=== PATIENT | female | born 1950 | race Caucasian/White ===

== ENCOUNTER 2016-10-09 17:00 | Inpatient (IN) | payer OTHER ==
[~2016-10-09] VITALS: Ht 162.6 cm; Wt 78.4 kg
[2016-10-09] MEDS: BuPROPion SR 100 MG TABCR PO SCH
[~2016-10-09 17:00] MED LIST: BUPR100T8 PO; CLOB-65 TOP; ESCI10TA17 PO; MRP1 PO; PRAM1TAB PO
[2016-10-09] MEDS ORDERED: LEVO25TA PO (17:26)
[2016-10-09] MEDS ORDERED: CARB25TA12 PO (17:26)
[2016-10-09] MEDS ORDERED: ANTICRE6 PO (17:27)
[2016-10-09 18:27] LABS: BASO % 0.2 %; BASO ABS # 0.02 K/uL (0-0.2); COMPLETE YES; EOS % 1.7 %; IG% 0.1 %; LYMPH % 42.1 %; LYMPH ABS # 3.38 K/uL (1.2-3.4); MEAN CELL VOLUME 94.3 fL (80-100); MEAN CORPUSCULAR HGB CONC 33.9 g/dl (32-36); MONO % 6.2 %; NEUT % 49.7 %; PLATELET COUNT 391 K/uL (130-400); RED BLOOD COUNT 4.35 M/uL (4.2-5.4); WHITE BLOOD COUNT 8.02 K/uL (4.8-10.8)
[2016-10-09 18:29] LABS: URINE APPEARANCE CLEAR (CLEAR); URINE BILIRUBIN NEG (NEG); URINE COLOR YELLOW; URINE NITRITE NEG (NEG); URINE SPECIFIC GRAVITY 1.006 (1.000-1.030); UROBILINOGEN NEG (NEG)
[2016-10-09 18:32] LABS: MANUAL MICROSCOPIC REQUIRED? NO; REVIEW REQ? NO
[2016-10-09 18:40] LABS: INR 0.9 (0.9-1.1)
[2016-10-09 18:48] LABS: ALT/SGPT 12 U/L (12-78); AST/SGOT 15 U/L (15-37); BLOOD UREA NITROGEN 19 mg/dl (7-18); BUN/CREATININE RATIO 18.8 (10-20); CARBON DIOXIDE 29 mmol/L (21-32); CHLORIDE 106 mmol/L (98-107); CREATININE 0.99 mg/dl (0.60-1.20); GLUCOSE 85 mg/dl (70-99); POTASSIUM 3.9 mmol/L (3.5-5.1); SODIUM 142 mmol/L (136-145)
[2016-10-09 18:53] LABS: ALB/GLOB RATIO 0.9 (0.9-2); ALKALINE PHOSPHATASE 103 U/L (45-117); CKMB/CK RATIO 2.4 (0-3.0)
--- NOTE | 2016-10-09 19:34 | DIAGNOSTIC IMAGING REPORT ---
BILATERAL LOWER EXTREMITY VENOUS DOPPLER CLINICAL HISTORY: Multiple pulmonary emboli. COMPARISON STUDY: Left lower extremity venous Doppler July 14, 2008. TECHNIQUE: Sonography of the deep venous system of the bilateral lower extremities was performed. Compression and augmentation were evaluated. FINDINGS: The bilateral common femoral, superficial femoral and popliteal veins were compressible. Augmentation was normal. Flow was shown within the deep calf vessels. IMPRESSION: No evidence of deep venous thrombus within the bilateral lower extremities. Electronically signed by: Horace Alexandra M.D. 10/09/2016 7:33 PM Dictated Date/Time: 10/09/2016 7:32 PM
--- NOTE | 2016-10-09 19:45 | EMERGENCY ROOM VISIT NOTE ---
History Report prepared by Gabi: Khalif Cedeño Under the Supervision of: Dr. Benigno Adams M.D. First contact with patient: 17:44 Chief Complaint: SHORTNESS OF BREATH Stated Complaint: DOCTOR TOLD TO COME IN, BLOOD CLOTS IN LUNGS Nursing Triage Summary: pt reports she had ct scan today called by pcp told she has pe in bilat lungs and needed to come to ed History of Present Illness The patient is a 66 year old female who presents to the Emergency Room with complaints of constant shortness of breath beginning six months ago. She states that she had a CT today which revealed right lower lobe and bilateral segmental branches pulmonary emboli. The CT was ordered by her PCP, who the patient saw for rib pain and shortness of breath. The patient states that she has had her rib pain since she fell two weeks ago. She has no history of blood clots. She states that she drove 3 hours a few weeks ago, but denies any other recent travel. Nothing has improved her symptoms. The patient is asplenic. She has a history of a nephrectomy and has had the tail of her pancreas removed due to cancer. Source of History: patient Onset: Six months ago Quality: other (shortness of breath) Timing: constant Modifying Factors (Relieving): other (none) Note: The patient also complains of rib pain. Review of Systems See HPI for pertinent positives & negatives. A total of 10 systems reviewed and were otherwise negative. Past Medical & Surgical Medical Problems: (1) left adrenal gland removal (2) Multinodular goiter (3) nephrectomy left (4) partial pancreatectomy (5) s/p ACL repair (6) s/p colonoscopy (7) s/p pubovaginal sling (8) s/p resection retroperitoneal mass (9) Splenectomy Family History Stroke Social History Smoking Status: Never Smoker Marital Status: Housing Status: lives with significant other Occupation Status: retired Current/Historical Medications Scheduled Bupropion (Wellbutrin Sr), 100 MG PO BID Carbidopa/Levodopa (Sinemet 25MG/100MG), 1 TAB PO TID Escitalopram (Lexapro), 10 MG PO HS Levothyroxine Sodium (Synthroid), 25 MCG PO DAILY Pramipexole Dihydrochloride (Mirapex), 1 TAB PO TID [Antibiotic], 1 TAB PO BID Allergies Coded Allergies: No Known Allergies (Verified , NONE, 10/09/16) Physical Exam Vital Signs Date Time Temp Pulse Resp B/P Pulse Ox O2 Delivery O2 Flow Rate FiO2 10/09/16 19:50 62 10/09/16 19:41 62 18 161/93 97 Room Air 10/09/16 17:08 36.6 62 18 138/91 96 Room Air Physical Exam GENERAL: Patient is a healthy-appearing well-nourished HEAD: Normocephalic atraumatic EYES: Ocular movements intact pupils equal and react to light OROPHARYNX mucous membranes are moist no exudates present no erythema or edema present NECK: Supple no nuchal rigidity CHEST: Good equal expansion LUNGS: Clear and equal to auscultation CARDIAC: Normal S1 and S2 ABDOMEN: Soft nontender no guarding BACK: No CVA tenderness EXTREMITIES: No pain upon palpation normal muscle strength in all groups no clubbing cyanosis or edema NEURO: Patient is following commands is answering questions appropriately. Alert and oriented x3 Cranial Nerves 2-12 grossly intact Medical Decision & Procedures ER Provider Diagnostic Interpretation: US results as stated below per my review and radiologist interpretation: BILATERAL LOWER EXTREMITY VENOUS DOPPLER FINDINGS: The bilateral common femoral, superficial femoral and popliteal veins were compressible. Augmentation was normal. Flow was shown within the deep calf vessels. IMPRESSION: No evidence of deep venous thrombus within the bilateral lower extremities. Electronically signed by: Horace Alexandra M.D. Laboratory Results 10/09/16 18:08 Red Blood Count 4.35, Mean Corpuscular Volume 94.3, Mean Corpuscular Hemoglobin 32.0, Mean Corpuscular Hemoglobin Concent 33.9, Mean Platelet Volume 9.0, Neutrophils (%) (Auto) 49.7, Lymphocytes (%) (Auto) 42.1, Monocytes (%) (Auto) 6.2, Eosinophils (%) (Auto) 1.7, Basophils (%) (Auto) 0.2, Neutrophils # (Auto) 3.97, Lymphocytes # (Auto) 3.38, Monocytes # (Auto) 0.50, Eosinophils # (Auto) 0.14, Basophils # (Auto) 0.02 10/09/16 18:08 Test 10/09/16 18:08 10/09/16 18:19 White Blood Count 8.02 K/uL (4.8-10.8) Red Blood Count 4.35 M/uL (4.2-5.4) Hemoglobin 13.9 g/dL (12.0-16.0) Hematocrit 41.0 % (37-47) Mean Corpuscular Volume 94.3 fL (80-100) Mean Corpuscular Hemoglobin 32.0 pg (25-34) Mean Corpuscular Hemoglobin Concent 33.9 g/dl (32-36) Platelet Count 391 K/uL (130-400) Mean Platelet Volume 9.0 fL (7.4-10.4) Neutrophils (%) (Auto) 49.7 % Lymphocytes (%) (Auto) 42.1 % Monocytes (%) (Auto) 6.2 % Eosinophils (%) (Auto) 1.7 % Basophils (%) (Auto) 0.2 % Neutrophils # (Auto) 3.97 K/uL (1.4-6.5) Lymphocytes # (Auto) 3.38 K/uL (1.2-3.4) Monocytes # (Auto) 0.50 K/uL (0.11-0.59) Eosinophils # (Auto) 0.14 K/uL (0-0.5) Basophils # (Auto) 0.02 K/uL (0-0.2) RDW Standard Deviation 46.8 fL (36.4-46.3) RDW Coefficient of Variation 13.6 % (11.5-14.5) Immature Granulocyte % (Auto) 0.1 % Immature Granulocyte # (Auto) 0.01 K/uL (0.00-0.02) Prothrombin Time 10.0 SECONDS (9.0-12.0) Prothromb Time International Ratio 0.9 (0.9-1.1) Activated Partial Thromboplast Time 26.6 SECONDS (21.0-31.0) Partial Thromboplastin Ratio 1.0 Anion Gap 7.0 mmol/L (3-11) Est Creatinine Clear Calc Drug Dose 56.2 ml/min Estimated GFR () 67.9 Estimated GFR (Non- 58.6 BUN/Creatinine Ratio 18.8 (10-20) Calcium Level 9.0 mg/dl (8.5-10.1) Total Bilirubin 0.4 mg/dl (0.2-1) Aspartate Amino Transf (AST/SGOT) 15 U/L (15-37) Alanine Aminotransferase (ALT/SGPT) 12 U/L (12-78) Alkaline Phosphatase 103 U/L (45-117) Total Creatine Kinase 113 U/L (26-192) Creatine Kinase MB 2.7 ng/ml (0.5-3.6) Creatine Kinase MB Ratio 2.4 (0-3.0) Troponin I < 0.015 ng/ml (0-0.045) Total Protein 8.2 gm/dl (6.4-8.2) Albumin 3.8 gm/dl (3.4-5.0) Globulin 4.4 gm/dl (2.5-4.0) Albumin/Globulin Ratio 0.9 (0.9-2) Urine Color YELLOW Urine Appearance CLEAR (CLEAR) Urine pH 7.0 (4.5-7.5) Urine Specific [place] 1.006 (1.000-1.030) Urine Protein NEG (NEG) Urine Glucose (UA) NEG (NEG) Urine Ketones NEG (NEG) Urine Occult Blood NEG (NEG) Urine Nitrite NEG (NEG) Urine Bilirubin NEG (NEG) Urine Urobilinogen NEG (NEG) Urine Leukocyte Esterase NEG (NEG) Labs reviewed by ED physician. Medications Administered Medications (Trade) Dose Ordered Sig/Ko Route Start Time Stop Time Status Last Admin Dose Admin Heparin Sodium/ Dextrose 1 ea NOW STAT N/A 10/09/16 20:02 10/09/16 20:25 DC 10/10/16 00:01 1 EA ECG Indication: SOB/dyspnea Rate (beats per minute): 60 Rhythm: normal sinus Findings: no acute ischemic change, no ectopy ED Course 1746: Past medical records reviewed. The patient was evaluated in room A12A. A complete history and physical examination was performed. 1837: Upon reexamination the patient is resting comfortably. I discussed results and treatment plan with the patient. She verbalizes agreement and understanding. I spoke with Jennifer Nguyen PA-C from the [facility]. The patient will be evaluated for further management. Medical Decision Differential diagnosis: Etiologies such as infections, reactive airway disease, pneumonia, pneumothorax , COPD, CHF, cardiac ischemia, pulmonary embolism, musculoskeletal, gastrointestinal, as well as others were entertained. Medication Reconciliation: I attest that I have personally reviewed the patient' s current medication list This is a 66-year-old female who has a history of a splenectomy. She was sent in by her primary care physician for multiple blood clots in her lungs. Based on this complaint coagulation panel was drawn as well as hypercoagulability workup. The patient does have multiple blood clots multiple lung lobes therefore did discuss the case with the hospitalist service who agreed to admit the patient. Patient was in agreement with the treatment plan. Consults Time Called: 1829 Consulting Physician: Jennifer Rodriguez Returned Call: 1836 I discussed the patient's case with Jennifer Nguyen PA-C, she has agreed to evaluate the patient for further management and care. Impression Primary Impression: Multiple pulmonary emboli Scribe Attestation The scribe's documentation has been prepared under my direction and personally reviewed by me in its entirety. I confirm that the note above accurately reflects all work, treatment, procedures, and medical decision making performed by me. Departure Information Dispostion Being Evaluated By Hospitalist Referrals No Doctor, Assigned (PCP) Patient Instructions My [facility]
[2016-10-09] MEDS ORDERED: SODIUM CHLORIDE 0.9% 1000ML 1,000 ML IV SCH (20:07)
[2016-10-09] MEDS ORDERED: HEPARIN SOD 5000 UNIT/0.5 ML CARP ONE (20:15)
[2016-10-09] MEDS ORDERED: ONDANSETRON INJ 2 MG/ML 2 ML VIAL IV PRN (20:15)
[2016-10-09] MEDS ORDERED: HEPARIN 25000 UNIT/500 ML D5W ONE (20:15)
[2016-10-09] MEDS ORDERED: ACETAMINOPHEN 325 MG TAB PO PRN (20:15)
--- NOTE | 2016-10-09 20:19 | History and Physical ---
History & Physical Date & Time of Service: October 09, 2016 at 20:08 Chief Complaint: Doctor Told To Come In, Blood Clots In Lungs Primary Care Physician: No Doctor, Assigned History of Present Illness Source: patient, clinic records, hospital records 66 year old female with history of Parkinson's Disease, other problems noted below presenting with shortness of breath x few months. Follows with Dr. Day for Primary Care. Patient presents to PCP last 09/30/16 for shortness of breath x few months, mostly with exertion. Denies chest pain, dizziness, syncope. No recent history of major surgeries. She did have a sling placement as outpatient last Wednesday. No plane rides but does travel to [place] by car every [address] chest showed Pulmonary Emboli in the Right Lower Lobe segmental branchers and subsegmental branchers of left lower lobe, right upper lobe and lingula. She was then sent to the ED for evaluation. At the ER, patient remained hemodynamically stable. Leg US was negative for DVT. On my exam, patient was resting comfortably in bed. Denies chest pain, dyspnea, dizziness, palpitations. No other symptoms. Past Medical/Surgical History Medical Problems: (1) left adrenal gland removal Status: Chronic (2) Multinodular goiter Status: Chronic (3) nephrectomy left Status: Chronic (4) partial pancreatectomy Status: Chronic (5) s/p ACL repair Status: Resolved (6) s/p colonoscopy Status: Resolved (7) s/p pubovaginal sling Status: Resolved (8) s/p resection retroperitoneal mass Permanent Comment: left nephrectomy, left adrenalectomy, distal pancreatectomy, splenectomy, mobilization of splenic flexure, appendectomy Dr. Lillian Ferrer [facility] Status: Resolved (9) Splenectomy Status: Chronic Family History Stroke Social History Smoking Status: Never Smoker Alcohol Use: none Drug Use: none Marital Status: , Housing status: lives alone Occupational Status: retired Immunizations History of Influenza Vaccine: Yes Influenza Vaccine Date: Apr 13, 2012 History of Tetanus Vaccine?: Yes History of Pneumococcal: Yes Pneumococcal Date: Apr 13, 2012 History of Hepatitis B Vaccine: Yes Hepatitis Immunization Date: Apr 13, 2012 Multi-Drug Resistant Organisms History of MDRO: Yes Type of MDRO: MRSA Allergies Coded Allergies: No Known Allergies (Verified , NONE, 10/09/16) Home Medications Scheduled Bupropion (Wellbutrin Sr), 100 MG PO BID Carbidopa/Levodopa (Sinemet 25MG/100MG), 1 TAB PO TID Escitalopram (Lexapro), 10 MG PO HS Levothyroxine Sodium (Synthroid), 25 MCG PO DAILY Pramipexole Dihydrochloride (Mirapex), 1 TAB PO TID [Antibiotic], 1 TAB PO BID Review of Systems Constitutional- no fever; no weight loss Eyes- no acute visual changes ENT- no sinus drainage; no pharyngitis Pulmonary-(+) as noted above Cardiac- no chest pain, no palpitations, no orthopnea, no dependent edema GI- no nausea, no vomiting, no diarrhea, no melena, no hematochezia - no dysuria, no hematuria Musculoskeletal- no arthralgias, no myalgias Derm- no rashes, no new skin lesions, no changing skin lesions Hematologic- no unusual bruising, no unusual bleeding Lymphatics- no adenopathy Endocrine- no polyuria or polydipsia; no heat or cold intolerance Neuro- no headaches, no focal neurologic symptoms Psych- no anxiety, no depression Physical Exam Vital Signs Date Time Temp Pulse Resp B/P Pulse Ox O2 Delivery O2 Flow Rate FiO2 10/09/16 19:50 62 10/09/16 19:41 62 18 161/93 97 Room Air 10/09/16 17:08 36.6 62 18 138/91 96 Room Air General Appearance: WD/WN, no apparent distress Head: normocephalic, atraumatic Eyes: normal inspection, PERRL, EOMI, sclerae normal ENT: normal ENT inspection, hearing grossly normal, TMs normal, pharynx normal Neck: supple, no adenopathy, thyroid normal, no JVD, trachea midline Respiratory/Chest: chest non-tender, lungs clear, normal breath sounds, no respiratory distress, no accessory muscle use Cardiovascular: regular rate, rhythm, no edema, no JVD, no murmur Abdomen/GI: normal bowel sounds, non tender, soft, no organomegaly Back: normal inspection, no CVA tenderness Extremities/Musculoskelatal: normal inspection, no calf tenderness, normal capillary refill, no pedal edema, normal range of motion Neurologic/Psych: hostess host II-XII nml as tested, no motor/sensory deficits, alert, normal mood/affect, oriented x 3 Skin: normal color, warm/dry, no rash Lymphatic: no adenopathy Diagnostics Laboratory Results Results Past 24 Hours Test 10/09/16 18:08 10/09/16 18:19 Range/Units White Blood Count 8.02 4.8-10.8 K/uL Red Blood Count 4.35 4.2-5.4 M/uL Hemoglobin 13.9 12.0-16.0 g/dL Hematocrit 41.0 37-47 % Mean Corpuscular Volume 94.3 80-100 fL Mean Corpuscular Hemoglobin 32.0 25-34 pg Mean Corpuscular Hemoglobin Concent 33.9 32-36 g/dl Platelet Count 391 130-400 K/uL Mean Platelet Volume 9.0 7.4-10.4 fL Neutrophils (%) (Auto) 49.7 % Lymphocytes (%) (Auto) 42.1 % Monocytes (%) (Auto) 6.2 % Eosinophils (%) (Auto) 1.7 % Basophils (%) (Auto) 0.2 % Neutrophils # (Auto) 3.97 1.4-6.5 K/uL Lymphocytes # (Auto) 3.38 1.2-3.4 K/uL Monocytes # (Auto) 0.50 0.11-0.59 K/uL Eosinophils # (Auto) 0.14 0-0.5 K/uL Basophils # (Auto) 0.02 0-0.2 K/uL RDW Standard Deviation 46.8 36.4-46.3 fL RDW Coefficient of Variation 13.6 11.5-14.5 % Immature Granulocyte % (Auto) 0.1 % Immature Granulocyte # (Auto) 0.01 0.00-0.02 K/uL Prothrombin Time 10.0 9.0-12.0 SECONDS Prothromb Time International Ratio 0.9 0.9-1.1 Activated Partial Thromboplast Time 26.6 21.0-31.0 SECONDS Partial Thromboplastin Ratio 1.0 Sodium Level 142 136-145 mmol/L Potassium Level 3.9 3.5-5.1 mmol/L Chloride Level 106 98-107 mmol/L Carbon Dioxide Level 29 21-32 mmol/L Anion Gap 7.0 3-11 mmol/L Blood Urea Nitrogen 19 7-18 mg/dl Creatinine 0.99 0.60-1.20 mg/dl Est Creatinine Clear Calc Drug Dose 56.2 ml/min Estimated GFR () 67.9 Estimated GFR (Non- 58.6 BUN/Creatinine Ratio 18.8 10-20 Random Glucose 85 70-99 mg/dl Calcium Level 9.0 8.5-10.1 mg/dl Total Bilirubin 0.4 0.2-1 mg/dl Aspartate Amino Transf (AST/SGOT) 15 15-37 U/L Alanine Aminotransferase (ALT/SGPT) 12 12-78 U/L Alkaline Phosphatase 103 45-117 U/L Total Creatine Kinase 113 26-192 U/L Creatine Kinase MB 2.7 0.5-3.6 ng/ml Creatine Kinase MB Ratio 2.4 0-3.0 Troponin I < 0.015 0-0.045 ng/ml Total Protein 8.2 6.4-8.2 gm/dl Albumin 3.8 3.4-5.0 gm/dl Globulin 4.4 2.5-4.0 gm/dl Albumin/Globulin Ratio 0.9 0.9-2 Urine Color YELLOW Urine Appearance CLEAR CLEAR Urine pH 7.0 4.5-7.5 Urine Specific [place] 1.006 1.000-1.030 Urine Protein NEG NEG Urine Glucose (UA) NEG NEG Urine Ketones NEG NEG Urine Occult Blood NEG NEG Urine Nitrite NEG NEG Urine Bilirubin NEG NEG Urine Urobilinogen NEG NEG Urine Leukocyte Esterase NEG NEG Diagnostic Radiology BILATERAL LOWER EXTREMITY VENOUS DOPPLER CLINICAL HISTORY: Multiple pulmonary emboli. COMPARISON STUDY: Left lower extremity venous Doppler July 14, 2008. TECHNIQUE: Sonography of the deep venous system of the bilateral lower extremities was performed. Compression and augmentation were evaluated. FINDINGS: The bilateral common femoral, superficial femoral and popliteal veins were compressible. Augmentation was normal. Flow was shown within the deep calf vessels. IMPRESSION: No evidence of deep venous thrombus within the bilateral lower extremities. EKG HR 60, normal sinus rhythm, no signs of acute infarct Impression Assessment and Plan 66 year old female with history of Parkinson's Disease, other problems noted below presenting with shortness of breath x few months. BILATERAL PULMONARY EMBOLISM - unclear whether provoked or not - risk factors: car trips to [place] (every 2 months, 3 hours)? family history of blood clots - hemodynamically stable - hypercoagulable work up sent - start Heparin drip with bolus, standard dose check Echo - transition to coumadin in AM - at least 3 months of anticoagulation - has history of lipoma of the cecum in 2011 will need age appropriate cancer screening PARKINSON continue Sinemet CKD 3 stable DVT PROPHYLAXIS on heparin drip Full Code Disposition patient lives alone ff up with Dr. Day for PCP may need Hematology referral as outpatient VTE Prophylaxis VTE Risk Assessment Done? Y/N: Yes Risk Level: High Given or contraindicated: Unfractionated heparin SQ
[2016-10-09] MEDS ORDERED: ESCITALOPRAM OXALATE 10 MG TAB PO SCH (21:00)
[2016-10-09 21:30] VITALS: BP 126/76; TEMP 36.7; O2SAT 95; Ht 162.6 cm; Wt 78.4 kg
[2016-10-09 22:01] VITALS: BP 126/76; PULSE 64; TEMP 36.7; O2SAT 95
[2016-10-09 23:45] VITALS: BP 117/73; PULSE 56; TEMP 36.5; O2SAT 96
[2016-10-09] MEDS: CARBIDOPA/LEVODOPA 25/100MG TAB PO SCH (23:58)
[2016-10-09] MEDS: PRAMIPEXOLE DIHYDROCHLORIDE 0.5 MG TAB PO SCH (23:59)
[2016-10-10 02:58] LABS: PARTIAL THROMBOPLASTIN RATIO 2.8
[2016-10-10 04:00] VITALS: BP 127/78; PULSE 55; TEMP 36.4; O2SAT 94
[2016-10-10] MEDS: LEVOTHYROXINE 25 MCG TAB PO SCH (06:21)
[2016-10-10 06:42] LABS: HEMATOCRIT 37.7 % (37-47); MEAN CELL VOLUME 94.5 fL (80-100); MEAN CORPUSCULAR HEMOGLOBIN 31.1 pg (25-34); MEAN CORPUSCULAR HGB CONC 32.9 g/dl (32-36); MEAN PLATELET VOLUME 9.2 fL (7.4-10.4); PLATELET COUNT 372 K/uL (130-400); RED BLOOD COUNT 3.99 M/uL (4.2-5.4); WHITE BLOOD COUNT 6.97 K/uL (4.8-10.8)
[2016-10-10 07:02] LABS: PARTIAL THROMBOPLASTIN RATIO 2.2; PROTHROMBIN TIME (PATIENT) 10.7 SECONDS (9.0-12.0)
[2016-10-10 07:24] LABS: BUN/CREATININE RATIO 20.1 (10-20); CALCIUM 8.7 mg/dl (8.5-10.1); CREATININE 0.89 mg/dl (0.60-1.20); POTASSIUM 4.5 mmol/L (3.5-5.1)
[2016-10-10] MEDS: BuPROPion SR 100 MG TABCR PO SCH (07:52)
[2016-10-10] MEDS: ESCITALOPRAM OXALATE 10 MG TAB PO SCH (07:52)
[2016-10-10] MEDS: PRAMIPEXOLE DIHYDROCHLORIDE 0.5 MG TAB PO SCH ×4 (07:52→21:17)
[2016-10-10] MEDS: CARBIDOPA/LEVODOPA 25/100MG TAB PO SCH ×3 (07:52→20:47)
[2016-10-10 08:00] VITALS: BP 143/81; PULSE 52; TEMP 36.6; O2SAT 93
[2016-10-10 08:45] LABS: BASO % 0.6 %; BASO ABS # 0.04 K/uL (0-0.2); COMPLETE YES; EOS % 2.4 %; HOWELL-JOLLY BODIES 1+; IG% 0.1 %; LYMPH % 57.1 %; LYMPH ABS # 3.98 K/uL (1.2-3.4); MONO % 6.2 %; NEUT % 33.6 %
[2016-10-10 09:40] LABS: PARTIAL THROMBOPLASTIN RATIO 1.7
[2016-10-10] MEDS ORDERED: HEPARIN IV BOLUS 3,000 UNIT in SYRINGE 0 ML IV ONE (10:15)
--- NOTE | 2016-10-10 11:44 | Progress Note ---
Internal Med Progress Note Date of Service: October 10, 2016. Provider Documentation: SUBJECTIVE: Seen and examined at bedside. States feeling well this morning. Denies chest pain, SOB, calf pain. Offers no complaints. OBJECTIVE: Vital Signs-as noted below Physical Exam: General Appearance:Moderately built and nourished, no apparent distress Head: normocephalic, Atraumatic Eyes: normal inspection, EOMI, PERRL Neck: supple, Trachea midline Respiratory/Chest: Normal breath sounds, CTA Cardiovascular: S1, S2, No murmur Abdomen/GI:Soft, Non tender, Bowel sounds present Extremities/Musculoskelatal:normal inspection, no edema Neurologic/Psych:AAOX3, grossly no focal neurological deficits Skin: normal color, warm Lab data as noted below. ASSESSMENT & PLAN: Patient is a 66 yr old female with PMH of Parkinson's Disease, other problems presented with shortness of breath since few months. BILATERAL PULMONARY EMBOLISM ? if provoked. Has family history of blood clots Reports travel (trip to [place]) 45 days ago Also has H/O lipoma of the cecum in 2010 hypercoagulable work up pending Continue Heparin drip. Will start Coumadin Monitor INR Echo:pending Venous Doppler: Negative for DVT May need heme oncology follow up and cancer screening as outpatient PARKINSON'S DISEASE continue Sinemet CKD III stable Monitor renal function DVT PX on heparin drip CODE STATUS: Full Code Disposition Continue to monitor in Tele Follows with Dr. Day for PCP May need follow up with Hematology as outpatient PROCEDURES: Venous Doppler: No evidence of deep venous thrombus within the bilateral lower extremities. Vital Signs: Date Time Temp Pulse Resp B/P Pulse Ox O2 Delivery O2 Flow Rate FiO2 10/10/16 08:00 36.6 52 16 143/81 93 Room Air 10/10/16 08:00 Room Air 10/10/16 04:00 Room Air 10/10/16 04:00 36.4 55 17 127/78 94 Room Air 10/10/16 00:00 Room Air 10/09/16 23:45 36.5 56 18 117/73 96 Room Air 10/09/16 22:01 36.7 64 22 126/76 95 Room Air 10/09/16 21:30 36.7 22 126/76 95 Room Air 10/09/16 21:08 67 18 122/73 96 Room Air 10/09/16 19:50 62 10/09/16 19:41 62 18 161/93 97 Room Air 10/09/16 17:08 36.6 62 18 138/91 96 Room Air Lab Results: Results Past 24 Hours Test 10/09/16 18:08 10/09/16 18:19 10/10/16 02:30 10/10/16 06:00 Range/Units White Blood Count 8.02 6.97 4.8-10.8 K/uL Red Blood Count 4.35 3.99 4.2-5.4 M/uL Hemoglobin 13.9 12.4 12.0-16.0 g/dL Hematocrit 41.0 37.7 37-47 % Mean Corpuscular Volume 94.3 94.5 80-100 fL Mean Corpuscular Hemoglobin 32.0 31.1 25-34 pg Mean Corpuscular Hemoglobin Concent 33.9 32.9 32-36 g/dl Platelet Count 391 372 130-400 K/uL Mean Platelet Volume 9.0 9.2 7.4-10.4 fL Neutrophils (%) (Auto) 49.7 33.6 % Lymphocytes (%) (Auto) 42.1 57.1 % Monocytes (%) (Auto) 6.2 6.2 % Eosinophils (%) (Auto) 1.7 2.4 % Basophils (%) (Auto) 0.2 0.6 % Neutrophils # (Auto) 3.97 2.34 1.4-6.5 K/uL Lymphocytes # (Auto) 3.38 3.98 1.2-3.4 K/uL Monocytes # (Auto) 0.50 0.43 0.11-0.59 K/uL Eosinophils # (Auto) 0.14 0.17 0-0.5 K/uL Basophils # (Auto) 0.02 0.04 0-0.2 K/uL RDW Standard Deviation 46.8 47.0 36.4-46.3 fL RDW Coefficient of Variation 13.6 13.6 11.5-14.5 % Immature Granulocyte % (Auto) 0.1 0.1 % Immature Granulocyte # (Auto) 0.01 0.01 0.00-0.02 K/uL Prothrombin Time 10.0 10.7 9.0-12.0 SECONDS Prothromb Time International Ratio 0.9 1.0 0.9-1.1 Activated Partial Thromboplast Time 26.6 73.4 58.3 21.0-31.0 SECONDS Partial Thromboplastin Ratio 1.0 2.8 2.2 Sodium Level 142 145 136-145 mmol/L Potassium Level 3.9 4.5 3.5-5.1 mmol/L Chloride Level 106 109 98-107 mmol/L Carbon Dioxide Level 29 29 21-32 mmol/L Anion Gap 7.0 7.0 3-11 mmol/L Blood Urea Nitrogen 19 18 7-18 mg/dl Creatinine 0.99 0.89 0.60-1.20 mg/dl Est Creatinine Clear Calc Drug Dose 56.2 61.4 ml/min Estimated GFR () 67.9 77.2 Estimated GFR (Non- 58.6 66.6 BUN/Creatinine Ratio 18.8 20.1 10-20 Random Glucose 85 100 70-99 mg/dl Calcium Level 9.0 8.7 8.5-10.1 mg/dl Total Bilirubin 0.4 0.2-1 mg/dl Aspartate Amino Transf (AST/SGOT) 15 15-37 U/L Alanine Aminotransferase (ALT/SGPT) 12 12-78 U/L Alkaline Phosphatase 103 45-117 U/L Total Creatine Kinase 113 26-192 U/L Creatine Kinase MB 2.7 0.5-3.6 ng/ml Creatine Kinase MB Ratio 2.4 0-3.0 Troponin I < 0.015 0-0.045 ng/ml Total Protein 8.2 6.4-8.2 gm/dl Albumin 3.8 3.4-5.0 gm/dl Globulin 4.4 2.5-4.0 gm/dl Albumin/Globulin Ratio 0.9 0.9-2 Urine Color YELLOW Urine Appearance CLEAR CLEAR Urine pH 7.0 4.5-7.5 Urine Specific [place] 1.006 1.000-1.030 Urine Protein NEG NEG Urine Glucose (UA) NEG NEG Urine Ketones NEG NEG Urine Occult Blood NEG NEG Urine Nitrite NEG NEG Urine Bilirubin NEG NEG Urine Urobilinogen NEG NEG Urine Leukocyte Esterase NEG NEG [place] Bodies 1+ Hepatitis C Antibody Screen NEG NEG Test 10/10/16 09:10 Range/Units Activated Partial Thromboplast Time 44.4 21.0-31.0 SECONDS Partial Thromboplastin Ratio 1.7
[2016-10-10 12:00] VITALS: BP 130/81; PULSE 60; TEMP 36.6; O2SAT 95
[2016-10-10] MEDS: CIPROFLOXACIN 500 MG TAB PO SCH ×2 (13:57→20:47)
[2016-10-10 15:27] VITALS: BP 144/81; PULSE 63; TEMP 36.4; O2SAT 96
[2016-10-10] MEDS: WARFARIN SOD 5 MG TAB PO SCH (15:55)
[2016-10-10 16:27] LABS: PARTIAL THROMBOPLASTIN RATIO 2.9
[2016-10-10 19:36] VITALS: BP 122/74; PULSE 55; TEMP 36.8; O2SAT 95
[2016-10-10] MEDS: HEPARIN 25,000 UNIT/500ML D5W 500 ML IV PRN (20:50)
[2016-10-10 23:57] VITALS: BP 112/68; PULSE 60; TEMP 36.7; O2SAT 95
[2016-10-11 00:58] LABS: PARTIAL THROMBOPLASTIN RATIO 2.4
[2016-10-11 03:30] VITALS: BP 120/72; PULSE 55; TEMP 36.3; O2SAT 94
[2016-10-11] MEDS: LEVOTHYROXINE 25 MCG TAB PO SCH (05:43)
[2016-10-11 06:53] LABS: BASO % 0.4 %; BASO ABS # 0.03 K/uL (0-0.2); COMPLETE YES; EOS % 2.1 %; HEMATOCRIT 38.5 % (37-47); IG% 0.3 %; LYMPH % 47.6 %; LYMPH ABS # 3.36 K/uL (1.2-3.4); MEAN CELL VOLUME 94.6 fL (80-100); MEAN CORPUSCULAR HEMOGLOBIN 31.2 pg (25-34); MONO % 8.6 %; PLATELET COUNT 365 K/uL (130-400); RED BLOOD COUNT 4.07 M/uL (4.2-5.4); WHITE BLOOD COUNT 7.06 K/uL (4.8-10.8)
[2016-10-11 07:07] LABS: PARTIAL THROMBOPLASTIN RATIO 2.3; PROTHROMBIN TIME (PATIENT) 10.9 SECONDS (9.0-12.0)
[2016-10-11 07:33] LABS: BUN/CREATININE RATIO 17.6 (10-20); POTASSIUM 4.8 mmol/L (3.5-5.1)
[2016-10-11] MEDS: ESCITALOPRAM OXALATE 10 MG TAB PO SCH (07:46)
[2016-10-11] MEDS: CIPROFLOXACIN 500 MG TAB PO SCH ×2 (07:46→21:04)
[2016-10-11] MEDS: PRAMIPEXOLE DIHYDROCHLORIDE 0.5 MG TAB PO SCH ×3 (07:47→21:04)
[2016-10-11] MEDS: CARBIDOPA/LEVODOPA 25/100MG TAB PO SCH ×3 (07:47→21:04)
[2016-10-11] MEDS: BuPROPion SR 100 MG TABCR PO SCH (07:48)
[2016-10-11 07:55] VITALS: BP 118/74; PULSE 56; TEMP 36.6; O2SAT 96
--- NOTE | 2016-10-11 09:36 | ECHOCARDIOGRAM REPORT ---
*NOTICE TO RECEIVING [facility] This information is strictly Confidential and protected under [place] law. [place] law prohibits you from making any further disclosure of this information unless further disclosure is expressly permitted by the written consent of the person to whom it pertains or is authorized by law. A general authorization for the release of medical or other information is not sufficient for this purpose. Hospital accepts no responsibility if the information is made available to any other person, INCLUDING THE PATIENT. Interpretation Summary * Name: DIALLO EVANS Study Date: 10/10/2016 07:07 AM BP: 127/78 mmHg * Patient Location: C.2T\S\S243\S\1 HR: 55 * : 1950 (M/d/yyyy) Gender: Female Height: 64 in * Age: 66 yrs Ethnicity: CA Weight: 179 lb * Ordering Physician: Hamlet Payne * Referring Physician: Self, Referred * Performed By: Ke Downey RDCS * * Reason For Study: Pulmonary embolism * BSA: 1.9 m2 * -- Conclusions -- * The left ventricle is normal in size. * There is normal left ventricular wall thickness. * The left ventricular wall motion is normal. * Ejection Fraction = 60-65%. * The right ventricle is normal in size and function. * There is mild mitral regurgitation. * There is mild tricuspid regurgitation. * Doppler findings do not suggest pulmonary hypertension. * Normal inferior vena cava diameter and respiratory variation suggests normal central venous pressure. Procedure Details * A complete two-dimensional transthoracic echocardiogram was performed (2D, M-mode, Doppler and color flow Doppler). * The study was technically adequate. Left Ventricle * The left ventricle is normal in size. * There is normal left ventricular wall thickness. * Left ventricular systolic function is normal. * Ejection Fraction = 60-65%. * The left ventricular wall motion is normal. Right Ventricle * The right ventricle is normal in size and function. Atria * The left atrial size is normal. * Right atrial size is normal. * No ASD detected; PFO is not assessed. Mitral Valve * The mitral valve anatomy is normal. * There is no mitral valve stenosis. * There is mild mitral regurgitation. Tricuspid Valve * The tricuspid valve anatomy is normal. * There is no tricuspid stenosis. * There is mild tricuspid regurgitation. * Doppler findings do not suggest pulmonary hypertension. Aortic Valve * The aortic valve is trileaflet. * No hemodynamically significant valvular aortic stenosis. * No aortic regurgitation is present. Pulmonic Valve * The pulmonic valve is not well visualized. * There is no pulmonic valvular stenosis. * Trace pulmonic valvular regurgitation. Great Vessels * The aortic root is normal size. Pericardium/Pleural * There is no pericardial effusion. Great Vessels * Normal inferior vena cava diameter and respiratory variation suggests normal central venous pressure. MMode 2D Measurements and Calculations IVSd 1.0 cm IVSs 1.5 cm LVIDd 4.5 cm LVIDs 3.2 cm LVPWd 10 cm LVPWs 1.5 cm IVS/LVPW 1.0 FS 29.6 % EDV(Teich) 94.3 ml ESV(Teich) 40.8 ml EF(Teich) 56.7 % EDV(cubed) 93.5 ml ESV(cubed) 32.6 ml EF(cubed) 65.1 % % IVS thick 46.2 % % LVPW thick 53.6 % LV mass(C)d 157.5 grams LV mass(C)dI 84.4 grams/m\S\2 LV mass(C)s 173.8 grams LV mass(C)sI 93.2 grams/m\S\2 SV(Teich) 53.5 ml SI(Teich) 28.7 ml/m\S\2 SV(cubed) 60.8 ml SI(cubed) 32.6 ml/m\S\2 EPSS 0.48 cm Ao root diam 3.0 cm Ao root area 7.0 cm\S\2 ACS 2.0 cm LA dimension 4.4 cm asc Aorta Diam 3.3 cm LA/Ao 1.5 LVOT diam 2.0 cm LVOT area 3.1 cm\S\2 LVAd ap4 23.2 cm\S\2 LVLd ap4 7.0 cm EDV(MOD-sp4) 63.0 ml LVAs ap4 12.5 cm\S\2 LVLs ap4 5.7 cm ESV(MOD-sp4) 23.0 ml EF(MOD-sp4) 63.5 % LVAd ap2 21.3 cm\S\2 LVLd ap2 7.0 cm EDV(MOD-sp2) 54.0 ml LVAs ap2 12.1 cm\S\2 LVLs ap2 6.0 cm ESV(MOD-sp2) 21.0 ml EF(MOD-sp2) 61.1 % SV(MOD-sp4) 40.0 ml SI(MOD-sp4) 21.4 ml/m\S\2 SV(MOD-sp2) 33.0 ml SI(MOD-sp2) 17.7 ml/m\S\2 Doppler Measurements and Calculations MV E max olivia 77.0 cm/sec MV A max olivia 67.1 cm/sec MV E/A 1.1 MV dec time 0.13 sec Ao V2 max 108.6 cm/sec Ao max PG 4.7 mmHg Ao max PG (full) 1.5 mmHg ANTONIO(V,A) 2.5 cm\S\2 ANTONIO(V,D) 2.5 cm\S\2 LV V1 max PG 3.2 mmHg LV V1 max 89.3 cm/sec PA V2 max 72.1 cm/sec PA max PG 2.1 mmHg PI end-d olivia 118.1 cm/sec TR max olivia 225.3 cm/sec
--- NOTE | 2016-10-11 11:33 | Progress Note ---
Internal Med Progress Note Date of Service: October 11, 2016. Provider Documentation: SUBJECTIVE: Seen and examined at bedside. Denies chest pain, SOB. No bleeding issues. Offers no complaints. Feels well. OBJECTIVE: Vital Signs-as noted below Physical Exam: General Appearance:Moderately built and nourished, no apparent distress Head: normocephalic, Atraumatic Eyes: normal inspection, EOMI, PERRL Neck: supple, Trachea midline Respiratory/Chest: Normal breath sounds, CTA Cardiovascular: S1, S2, No murmur Abdomen/GI:Soft, Non tender, Bowel sounds present Extremities/Musculoskelatal:normal inspection, no edema Neurologic/Psych:AAOX3, grossly no focal neurological deficits Skin: normal color, warm Lab data as noted below. ASSESSMENT & PLAN: Patient is a 66 yr old female with PMH of Parkinson's Disease, other problems presented with shortness of breath since few months. BILATERAL PULMONARY EMBOLISM ? if provoked. Has family history of blood clots Reports travel (trip to [place]) 45 days ago Also has H/O lipoma of the cecum in 2010 hypercoagulable work up pending Continue Heparin drip. Continue Coumadin Monitor INR:1.0 today Venous Doppler: Negative for DVT May need heme oncology follow up and cancer screening as outpatient PARKINSON'S DISEASE continue Sinemet CKD III stable Monitor renal function DVT PX on heparin drip CODE STATUS: Full Code Disposition Plan to transfer to medical floor Follows with Dr. Day for PCP May need follow up with Hematology as outpatient PROCEDURES: Venous Doppler: No evidence of deep venous thrombus within the bilateral lower extremities. ECHO: * The left ventricle is normal in size. * There is normal left ventricular wall thickness. * The left ventricular wall motion is normal. * Ejection Fraction = 60-65%. * The right ventricle is normal in size and function. * There is mild mitral regurgitation. * There is mild tricuspid regurgitation. * Doppler findings do not suggest pulmonary hypertension. * Normal inferior vena cava diameter and respiratory variation suggests normal central venous pressure. Vital Signs: Date Time Temp Pulse Resp B/P Pulse Ox O2 Delivery O2 Flow Rate FiO2 10/11/16 11:36 36.6 62 16 120/76 96 10/11/16 08:00 Room Air 10/11/16 07:55 36.6 56 16 118/74 96 10/11/16 04:00 Room Air 10/11/16 03:30 36.3 55 16 120/72 94 Room Air 10/11/16 00:00 Room Air 10/10/16 23:57 36.7 60 17 112/68 95 Room Air 10/10/16 20:00 Room Air 10/10/16 19:36 36.8 55 22 122/74 95 Room Air 10/10/16 16:00 Room Air 10/10/16 15:27 36.4 63 22 144/81 96 Room Air 10/10/16 12:00 Room Air 10/10/16 12:00 36.6 60 18 130/81 95 Room Air Lab Results: Results Past 24 Hours Test 10/10/16 16:00 10/11/16 00:26 10/11/16 06:39 Range/Units Activated Partial Thromboplast Time 75.8 63.4 60.9 21.0-31.0 SECONDS Partial Thromboplastin Ratio 2.9 2.4 2.3 White Blood Count 7.06 4.8-10.8 K/uL Red Blood Count 4.07 4.2-5.4 M/uL Hemoglobin 12.7 12.0-16.0 g/dL Hematocrit 38.5 37-47 % Mean Corpuscular Volume 94.6 80-100 fL Mean Corpuscular Hemoglobin 31.2 25-34 pg Mean Corpuscular Hemoglobin Concent 33.0 32-36 g/dl Platelet Count 365 130-400 K/uL Mean Platelet Volume 9.0 7.4-10.4 fL Neutrophils (%) (Auto) 41.0 % Lymphocytes (%) (Auto) 47.6 % Monocytes (%) (Auto) 8.6 % Eosinophils (%) (Auto) 2.1 % Basophils (%) (Auto) 0.4 % Neutrophils # (Auto) 2.89 1.4-6.5 K/uL Lymphocytes # (Auto) 3.36 1.2-3.4 K/uL Monocytes # (Auto) 0.61 0.11-0.59 K/uL Eosinophils # (Auto) 0.15 0-0.5 K/uL Basophils # (Auto) 0.03 0-0.2 K/uL RDW Standard Deviation 46.8 36.4-46.3 fL RDW Coefficient of Variation 13.6 11.5-14.5 % Immature Granulocyte % (Auto) 0.3 % Immature Granulocyte # (Auto) 0.02 0.00-0.02 K/uL Prothrombin Time 10.9 9.0-12.0 SECONDS Prothromb Time International Ratio 1.0 0.9-1.1 Sodium Level 142 136-145 mmol/L Potassium Level 4.8 3.5-5.1 mmol/L Chloride Level 107 98-107 mmol/L Carbon Dioxide Level 31 21-32 mmol/L Anion Gap 4.0 3-11 mmol/L Blood Urea Nitrogen 18 7-18 mg/dl Creatinine 1.00 0.60-1.20 mg/dl Est Creatinine Clear Calc Drug Dose 54.6 ml/min Estimated GFR () 67.0 Estimated GFR (Non- 57.8 BUN/Creatinine Ratio 17.6 10-20 Random Glucose 105 70-99 mg/dl Calcium Level 9.0 8.5-10.1 mg/dl
[2016-10-11 11:36] VITALS: BP 120/76; PULSE 62; TEMP 36.6; O2SAT 96
[2016-10-11 12:45] VITALS: BP 115/75; PULSE 63; TEMP 36.8; O2SAT 94
[2016-10-11 14:44] VITALS: BP 124/77; PULSE 65; TEMP 36.5; O2SAT 93
[2016-10-11] MEDS: WARFARIN SOD 5 MG TAB PO SCH (16:29)
[2016-10-11] MEDS: HEPARIN 25,000 UNIT/500ML D5W 500 ML IV PRN (19:42)
[2016-10-12 00:38] VITALS: BP 105/66; PULSE 58; TEMP 36.6; O2SAT 94
[2016-10-12 05:59] LABS: HEMATOCRIT 38.8 % (37-47); MEAN CELL VOLUME 94.4 fL (80-100); MEAN CORPUSCULAR HEMOGLOBIN 31.1 pg (25-34); MEAN PLATELET VOLUME 9.1 fL (7.4-10.4); PLATELET COUNT 379 K/uL (130-400); RED BLOOD COUNT 4.11 M/uL (4.2-5.4); WHITE BLOOD COUNT 6.49 K/uL (4.8-10.8)
[2016-10-12 06:24] LABS: INR 1.5 (0.9-1.1); PARTIAL THROMBOPLASTIN RATIO 3.8; PROTHROMBIN TIME (PATIENT) 16.3 SECONDS (9.0-12.0)
[2016-10-12 06:24] LABS: BASO % 0.3 %; BASO ABS # 0.02 K/uL (0-0.2); COMPLETE YES; EOS % 2.5 %; HOWELL-JOLLY BODIES 1+; IG% 0.2 %; LYMPH % 50.4 %; LYMPH ABS # 3.27 K/uL (1.2-3.4); MONO % 6.6 %
[2016-10-12 06:28] LABS: BUN/CREATININE RATIO 15.5 (10-20); CALCIUM 8.8 mg/dl (8.5-10.1); CREATININE 1.1 mg/dl (0.60-1.20); POTASSIUM 4.6 mmol/L (3.5-5.1)
[2016-10-12] MEDS: LEVOTHYROXINE 25 MCG TAB PO SCH (06:44)
[2016-10-12 08:02] VITALS: BP 130/81; PULSE 51; TEMP 36.5; O2SAT 95
[2016-10-12] MEDS: HEPARIN 25,000 UNIT/500ML D5W 500 ML IV PRN ×4 (08:10→22:56)
[2016-10-12] MEDS: CIPROFLOXACIN 500 MG TAB PO SCH ×2 (08:48→21:08)
[2016-10-12] MEDS: ESCITALOPRAM OXALATE 10 MG TAB PO SCH (08:50)
[2016-10-12] MEDS: PRAMIPEXOLE DIHYDROCHLORIDE 0.5 MG TAB PO SCH ×3 (08:50→21:09)
[2016-10-12] MEDS: BuPROPion SR 100 MG TABCR PO SCH (08:51)
[2016-10-12] MEDS: CARBIDOPA/LEVODOPA 25/100MG TAB PO SCH ×3 (08:51→21:08)
--- NOTE | 2016-10-12 14:07 | Progress Note ---
Internal Med Progress Note Date of Service: October 12, 2016. Provider Documentation: SUBJECTIVE: Seen and examined at bedside. States feeling well. Denies chest pain, SOB. Offers no complaints. Feels well. OBJECTIVE: Vital Signs-as noted below Physical Exam: General Appearance:Moderately built and nourished, no apparent distress Head: normocephalic, Atraumatic Eyes: normal inspection, EOMI, PERRL Neck: supple, Trachea midline Respiratory/Chest: Normal breath sounds, CTA Cardiovascular: S1, S2, No murmur Abdomen/GI:Soft, Non tender, Bowel sounds present Extremities/Musculoskelatal:normal inspection, no edema Neurologic/Psych:AAOX3, grossly no focal neurological deficits Skin: normal color, warm Lab data as noted below. ASSESSMENT & PLAN: Patient is a 66 yr old female with PMH of Parkinson's Disease, other problems presented with shortness of breath since few months. BILATERAL PULMONARY EMBOLISM ? if provoked. Has family history of blood clots Reports travel (trip to [place]) 45 days ago Also has H/O lipoma of the cecum in 2010 hypercoagulable work up pending Continue Heparin drip. Continue Coumadin: 5mg today Monitor INR:1.5 today Venous Doppler: Negative for DVT May need heme oncology follow up and cancer screening as outpatient Patient prefers to be started on Pradaxa if Insurance approves. PARKINSON'S DISEASE continue Sinemet CKD III stable Monitor renal function DVT PX on heparin drip CODE STATUS: Full Code Disposition Plan to transfer to medical floor Follows with Dr. Day for PCP May need follow up with Hematology as outpatient PROCEDURES: Venous Doppler: No evidence of deep venous thrombus within the bilateral lower extremities. ECHO: * The left ventricle is normal in size. * There is normal left ventricular wall thickness. * The left ventricular wall motion is normal. * Ejection Fraction = 60-65%. * The right ventricle is normal in size and function. * There is mild mitral regurgitation. * There is mild tricuspid regurgitation. * Doppler findings do not suggest pulmonary hypertension. * Normal inferior vena cava diameter and respiratory variation suggests normal central venous pressure. Vital Signs: Date Time Temp Pulse Resp B/P Pulse Ox O2 Delivery O2 Flow Rate FiO2 10/12/16 08:02 36.5 51 17 130/81 95 Room Air 10/12/16 08:00 Room Air 10/12/16 00:50 Room Air 10/12/16 00:38 36.6 58 18 105/66 94 Room Air 10/11/16 16:00 Room Air 10/11/16 14:44 36.5 65 20 124/77 93 Lab Results: Results Past 24 Hours Test 10/12/16 05:17 10/12/16 05:47 10/12/16 11:52 10/12/16 14:02 Range/Units White Blood Count 6.49 4.8-10.8 K/uL Red Blood Count 4.11 4.2-5.4 M/uL Hemoglobin 12.8 12.0-16.0 g/dL Hematocrit 38.8 37-47 % Mean Corpuscular Volume 94.4 80-100 fL Mean Corpuscular Hemoglobin 31.1 25-34 pg Mean Corpuscular Hemoglobin Concent 33.0 32-36 g/dl Platelet Count 379 130-400 K/uL Mean Platelet Volume 9.1 7.4-10.4 fL Neutrophils (%) (Auto) 40.0 % Lymphocytes (%) (Auto) 50.4 % Monocytes (%) (Auto) 6.6 % Eosinophils (%) (Auto) 2.5 % Basophils (%) (Auto) 0.3 % Neutrophils # (Auto) 2.60 1.4-6.5 K/uL Lymphocytes # (Auto) 3.27 1.2-3.4 K/uL Monocytes # (Auto) 0.43 0.11-0.59 K/uL Eosinophils # (Auto) 0.16 0-0.5 K/uL Basophils # (Auto) 0.02 0-0.2 K/uL RDW Standard Deviation 46.6 36.4-46.3 fL RDW Coefficient of Variation 13.5 11.5-14.5 % Immature Granulocyte % (Auto) 0.2 % Immature Granulocyte # (Auto) 0.01 0.00-0.02 K/uL [place] Bodies 1+ Prothrombin Time 16.3 9.0-12.0 SECONDS Prothromb Time International Ratio 1.5 0.9-1.1 Activated Partial Thromboplast Time 99.7 21.0-31.0 SECONDS Partial Thromboplastin Ratio 3.8 Sodium Level 143 136-145 mmol/L Potassium Level 4.6 3.5-5.1 mmol/L Chloride Level 107 98-107 mmol/L Carbon Dioxide Level 31 21-32 mmol/L Anion Gap 5.0 3-11 mmol/L Blood Urea Nitrogen 17 7-18 mg/dl Creatinine 1.10 0.60-1.20 mg/dl Est Creatinine Clear Calc Drug Dose 49.6 ml/min Estimated GFR () 59.7 Estimated GFR (Non- 51.5 BUN/Creatinine Ratio 15.5 10-20 Random Glucose 104 70-99 mg/dl Calcium Level 8.8 8.5-10.1 mg/dl Bedside Glucose 83 70-90 mg/dl
[2016-10-12 14:30] LABS: PARTIAL THROMBOPLASTIN RATIO 2.5
[2016-10-12 17:29] VITALS: BP 123/78; PULSE 66; TEMP 36.7; O2SAT 94
[2016-10-12] MEDS: WARFARIN SOD 5 MG TAB PO SCH (17:34)
[2016-10-13] VITALS: BP 98/66; PULSE 60; TEMP 36.7; O2SAT 95
[2016-10-13 06:04] LABS: BASO % 0.4 %; BASO ABS # 0.03 K/uL (0-0.2); COMPLETE YES; EOS % 2.6 %; IG% 0.1 %; LYMPH % 41.4 %; LYMPH ABS # 2.83 K/uL (1.2-3.4); MEAN CELL VOLUME 93.7 fL (80-100); MEAN CORPUSCULAR HEMOGLOBIN 31.6 pg (25-34); MEAN CORPUSCULAR HGB CONC 33.8 g/dl (32-36); MEAN PLATELET VOLUME 8.9 fL (7.4-10.4); MONO % 8.3 %; NEUT % 47.2 %; PLATELET COUNT 380 K/uL (130-400); RED BLOOD COUNT 4.27 M/uL (4.2-5.4); WHITE BLOOD COUNT 6.84 K/uL (4.8-10.8)
[2016-10-13] MEDS: LEVOTHYROXINE 25 MCG TAB PO SCH (06:25)
[2016-10-13 06:42] LABS: BUN/CREATININE RATIO 19.2 (10-20); CALCIUM 9.2 mg/dl (8.5-10.1); CREATININE 1.1 mg/dl (0.60-1.20); POTASSIUM 4.7 mmol/L (3.5-5.1)
[2016-10-13 06:43] LABS: INR 2.2 (0.9-1.1); PROTHROMBIN TIME (PATIENT) 24.6 SECONDS (9.0-12.0)
[2016-10-13 06:52] LABS: PARTIAL THROMBOPLASTIN RATIO 3.1
[2016-10-13 07:23] VITALS: BP 108/64; PULSE 55; TEMP 36.5; O2SAT 96
[2016-10-13 08:00] VITALS: O2SAT 96
[2016-10-13] MEDS: CIPROFLOXACIN 500 MG TAB PO SCH (08:22)
[2016-10-13] MEDS: PRAMIPEXOLE DIHYDROCHLORIDE 0.5 MG TAB PO SCH ×2 (08:22→13:10)
[2016-10-13] MEDS: BuPROPion SR 100 MG TABCR PO SCH (08:23)
[2016-10-13] MEDS: CARBIDOPA/LEVODOPA 25/100MG TAB PO SCH ×2 (08:23→13:09)
[2016-10-13] MEDS: ESCITALOPRAM OXALATE 10 MG TAB PO SCH (08:23)
--- NOTE | 2016-10-13 13:20 | Progress Note ---
Internal Med Progress Note Date of Service: October 13, 2016. Provider Documentation: SUBJECTIVE: Seen and examined at bedside. Denies chest pain, SOB. Offers no complaints. Family at bedside. OBJECTIVE: Vital Signs-as noted below Physical Exam: General Appearance:Moderately built and nourished, no apparent distress Head: normocephalic, Atraumatic Eyes: normal inspection, EOMI, PERRL Neck: supple, Trachea midline Respiratory/Chest: Normal breath sounds, CTA Cardiovascular: S1, S2, No murmur Abdomen/GI:Soft, Non tender, Bowel sounds present Extremities/Musculoskelatal:normal inspection, no edema Neurologic/Psych:AAOX3, grossly no focal neurological deficits Skin: normal color, warm Lab data as noted below. ASSESSMENT & PLAN: Patient is a 66 yr old female with PMH of Parkinson's Disease, other problems presented with shortness of breath since few months. BILATERAL PULMONARY EMBOLISM ? if provoked. Has family history of blood clots Reports travel (trip to [place]) 45 days ago Also has H/O lipoma of the cecum in 2010 hypercoagulable work up pending DC Heparin drip.>>> Switch to Lovenox Continue Coumadin: 2.5mg today Monitor INR: 2.2 today Venous Doppler: Negative for DVT May need heme oncology follow up and cancer screening as outpatient PARKINSON'S DISEASE continue Sinemet CKD III stable Monitor renal function DVT PX INR therapeutic CODE STATUS: Full Code Disposition Plan to discharge home today Follows with your Physician Dr. Day on 10/14/16 at 12:45pm Follow up with Hematology as outpatient as needed to screen for possible underlying malignancy Get PT/INR tomorrow and follow up with Coumadin clinic as advised for further Coumadin dosage PROCEDURES: Venous Doppler: No evidence of deep venous thrombus within the bilateral lower extremities. ECHO: * The left ventricle is normal in size. * There is normal left ventricular wall thickness. * The left ventricular wall motion is normal. * Ejection Fraction = 60-65%. * The right ventricle is normal in size and function. * There is mild mitral regurgitation. * There is mild tricuspid regurgitation. * Doppler findings do not suggest pulmonary hypertension. * Normal inferior vena cava diameter and respiratory variation suggests normal central venous pressure. Vital Signs: Date Time Temp Pulse Resp B/P Pulse Ox O2 Delivery O2 Flow Rate FiO2 10/13/16 08:00 96 Room Air 10/13/16 07:23 36.5 55 16 108/64 96 Room Air 10/13/16 00:00 Room Air 10/13/16 00:00 36.7 60 17 98/66 95 Room Air 10/12/16 17:29 36.7 66 16 123/78 94 Room Air 10/12/16 17:00 Room Air Lab Results: Results Past 24 Hours Test 10/12/16 14:02 10/13/16 05:54 Range/Units Activated Partial Thromboplast Time 63.8 80.2 21.0-31.0 SECONDS Partial Thromboplastin Ratio 2.5 3.1 White Blood Count 6.84 4.8-10.8 K/uL Red Blood Count 4.27 4.2-5.4 M/uL Hemoglobin 13.5 12.0-16.0 g/dL Hematocrit 40.0 37-47 % Mean Corpuscular Volume 93.7 80-100 fL Mean Corpuscular Hemoglobin 31.6 25-34 pg Mean Corpuscular Hemoglobin Concent 33.8 32-36 g/dl Platelet Count 380 130-400 K/uL Mean Platelet Volume 8.9 7.4-10.4 fL Neutrophils (%) (Auto) 47.2 % Lymphocytes (%) (Auto) 41.4 % Monocytes (%) (Auto) 8.3 % Eosinophils (%) (Auto) 2.6 % Basophils (%) (Auto) 0.4 % Neutrophils # (Auto) 3.22 1.4-6.5 K/uL Lymphocytes # (Auto) 2.83 1.2-3.4 K/uL Monocytes # (Auto) 0.57 0.11-0.59 K/uL Eosinophils # (Auto) 0.18 0-0.5 K/uL Basophils # (Auto) 0.03 0-0.2 K/uL RDW Standard Deviation 46.1 36.4-46.3 fL RDW Coefficient of Variation 13.5 11.5-14.5 % Immature Granulocyte % (Auto) 0.1 % Immature Granulocyte # (Auto) 0.01 0.00-0.02 K/uL Prothrombin Time 24.6 9.0-12.0 SECONDS Prothromb Time International Ratio 2.2 0.9-1.1 Sodium Level 142 136-145 mmol/L Potassium Level 4.7 3.5-5.1 mmol/L Chloride Level 108 98-107 mmol/L Carbon Dioxide Level 26 21-32 mmol/L Anion Gap 8.0 3-11 mmol/L Blood Urea Nitrogen 21 7-18 mg/dl Creatinine 1.10 0.60-1.20 mg/dl Est Creatinine Clear Calc Drug Dose 49.6 ml/min Estimated GFR () 59.7 Estimated GFR (Non- 51.5 BUN/Creatinine Ratio 19.2 10-20 Random Glucose 104 70-99 mg/dl Calcium Level 9.2 8.5-10.1 mg/dl
[2016-10-13] MEDS ORDERED: WARF4TAB44 PO (13:43)
[2016-10-13] MEDS ORDERED: LVNIS120 SQ (13:43)
[2016-10-13] MEDS ORDERED: WARF-280 PO (13:43)
--- NOTE | 2016-10-13 13:46 | Discharge Summary ---
Discharge Summary Date of Service October 13, 2016. Discharge Summary Admission Date: October 09, 2016 at 20:02 Discharge Date: October 13, 2016 Discharge Disposition: Home with services Principal Diagnosis: Bilateral Pulmonary Embolism Procedures: vENOUS dOPPLER: No evidence of deep venous thrombus within the bilateral lower extremities. Consultations: none Pending Studies/Follow-Up: Follows with your Physician Dr. Day on 10/14/16 at 12:45pm Follow up with Hematology as outpatient as needed to screen for possible underlying malignancy Get PT/INR tomorrow and follow up with Coumadin clinic as advised for further Coumadin dosage Medication Reconciliation New Medications: Warfarin Sodium (Warfarin Sodium) 1 Mg Tab 1 TAB PO DAILY for 90 Days, #90 TAB Get PT/INR on 10/14/16 and follow up with /Coumadin clinic for further dosage Warfarin Sodium (Warfarin Sodium) 2.5 Mg Tab 2.5 MG PO UD for 30 Days, #60 Get PT/INR on 10/14/16 and follow up with /Coumadin clinic for further dosage Enoxaparin (Lovenox) 120 Mg/0.8 Ml Inj 120 MG SQ DAILY@1400 for 1 Day, #1 EA Continued Medications: Bupropion (Wellbutrin Sr) 100 Mg Ertab 100 MG PO BID, TAB Carbidopa/Levodopa (Sinemet 25MG/100MG) Tab 1 TAB PO TID, TAB Escitalopram (Lexapro) 10 Mg Tab 10 MG PO QAM, TAB Levothyroxine Sodium (Synthroid) 25 Mcg Tab 25 MCG PO DAILY, TAB Pramipexole Dihydrochloride (Mirapex) 1 Mg Tab 1 TAB PO TID [Antibiotic] () 1 TAB PO BID UNKNOWN ANTIBIOTIC SUPPOSED TO TAKE FOR 5 DAYS Admission Information HPI (per Admitting provider): 66 year old female with history of Parkinson's Disease, other problems noted below presenting with shortness of breath x few months. Follows with Dr. Day for Primary Care. Patient presents to PCP last 09/30/16 for shortness of breath x few months, mostly with exertion. Denies chest pain, dizziness, syncope. No recent history of major surgeries. She did have a sling placement as outpatient last Wednesday. No plane rides but does travel to [place] by car every [address] chest showed Pulmonary Emboli in the Right Lower Lobe segmental branchers and subsegmental branchers of left lower lobe, right upper lobe and lingula. She was then sent to the ED for evaluation. At the ER, patient remained hemodynamically stable. Leg US was negative for DVT. On my exam, patient was resting comfortably in bed. Denies chest pain, dyspnea, dizziness, palpitations. No other symptoms. Physical Exam (per Admitting): General Appearance: WD/WN, no apparent distress Head: normocephalic, atraumatic Eyes: normal inspection, PERRL, EOMI, sclerae normal ENT: normal ENT inspection, hearing grossly normal, TMs normal, pharynx normal Neck: supple, no adenopathy, thyroid normal, no JVD, trachea midline Respiratory/Chest: chest non-tender, lungs clear, normal breath sounds, no respiratory distress, no accessory muscle use Cardiovascular: regular rate, rhythm, no edema, no JVD, no murmur Abdomen/GI: normal bowel sounds, non tender, soft, no organomegaly Back: normal inspection, no CVA tenderness Extremities/Musculoskelatal: normal inspection, no calf tenderness, normal capillary refill, no pedal edema, normal range of motion Neurologic/Psych: register in chancery II-XII nml as tested, no motor/sensory deficits, alert , normal mood/affect, oriented x 3 Skin: normal color, warm/dry, no rash Lymphatic: no adenopathy Hospital Course Patient is a 66 yr old female with PMH of Parkinson's Disease, other problems presented with shortness of breath since few months. BILATERAL PULMONARY EMBOLISM ? if provoked. Has family history of blood clots Reports travel (trip to [place]) 45 days ago Also has H/O lipoma of the cecum in 2010 hypercoagulable work up pending DC Heparin drip.>>> Switch to Lovenox Continue Coumadin: 2.5mg today Monitor INR: 2.2 today Venous Doppler: Negative for DVT May need heme oncology follow up and cancer screening as outpatient PARKINSON'S DISEASE continue Sinemet CKD III stable Monitor renal function DVT PX INR therapeutic CODE STATUS: Full Code Disposition Plan to discharge home today Follows with your Physician Dr. Day on 10/14/16 at 12:45pm Follow up with Hematology as outpatient as needed to screen for possible underlying malignancy Get PT/INR tomorrow and follow up with Coumadin clinic as advised for further Coumadin dosage PROCEDURES: Venous Doppler: No evidence of deep venous thrombus within the bilateral lower extremities. ECHO: * The left ventricle is normal in size. * There is normal left ventricular wall thickness. * The left ventricular wall motion is normal. * Ejection Fraction = 60-65%. * The right ventricle is normal in size and function. * There is mild mitral regurgitation. * There is mild tricuspid regurgitation. * Doppler findings do not suggest pulmonary hypertension. * Normal inferior vena cava diameter and respiratory variation suggests normal central venous pressure. Total time spent on discharge = 33 MINUTES This includes examination of the patient, discharge planning, medication reconciliation, and communication with other providers. Discharge Instructions Discharge Instructions Date of Service October 13, 2016. Admission Reason for Admission: Multiple Pulmonary Emboli Discharge Discharge Diagnosis / Problem: Bilateral Pulmonary Embolism Discharge Goals Goal(s): Decrease discomfort, Improve function Activity Recommendations Activity Limitations: resume your previous activity Exercise/Sports Limitations: as tolerated . Instructions / Follow-Up Instructions / Follow-Up Follows with your Physician Dr. Day on 10/14/16 at 12:45pm Follow up with Hematology as outpatient as needed to screen for possible underlying malignancy Get PT/INR tomorrow and follow up with Coumadin clinic as advised for further Coumadin dosage Current Hospital Diet Patient's current hospital diet: Regular Diet Discharge Diet Recommended Diet: Regular Diet Pending Studies Studies pending at discharge: yes List of pending studies: Hypercoaguable work up Medical Emergencies . Who to Call and When: Medical Emergencies: If at any time you feel your situation is an emergency, please call 911 immediately. . Non-Emergent Contact Non-Emergency issues call your: Primary Care Provider Call Non-Emergent contact if: you have a fever, your pain is not controlled, your pain is worsening, your pain is unusual for you, you have any medication questions . . "Provider Documentation" section prepared by Lukas Mathews. . VTE Core Measure Inpt VTE Proph given/why not?: Unfractionated heparin SQ
[2016-10-13 13:50] VITALS: BP 108/64; PULSE 55; TEMP 36.5; O2SAT 96
[2016-10-13] MEDS ORDERED: ENOXAPARIN 120 MG/0.8 ML SYR SQ SCH (14:00)
[2016-10-13] MEDS ORDERED: WARFARIN SOD 2.5 MG TAB PO SCH (16:00)
[2016-10-14] MEDS ORDERED: ENOXAPARIN 1.5 MG/KG SQ SCH (08:00)
[2016-10-14 17:31] LABS: ANTITHROMBINIII ACTIVITY** 97 % activity (80-120); B2 GLYCOPROTEIN IGA <9 SAU (<=20); B2 GLYCOPROTEIN IGG <9 SGU (<=20); B2 GLYCOPROTEIN IGM <9 SMU (<=20); LUPUS ANTICOAGULANT** TC36573X Negative (Negative); PROTEIN C ACTIVITY** TC 1777X 171 % (70-180); PROTEIN S ACT(FUNCT)**1779X 99 % (60-140)
== END 2016-10-13 15:42 | disposition home or self-care (01) | DRG 176 ==
LOC: ENRESERVDT → ENRESERVTM → CANRESERV → C.EDB 17:03 → C.2T 20:02 → C.4E 10-11 11:44
PROVIDERS: ADMIT Internal Medicine; ATTEND Internal Medicine
DX: I26.99 Other pulmonary embolism without acute cor pulmonale (principal); G20 Parkinson's disease; Z83.2 Family history of diseases of the blood and blood-forming organs and certain disorders involving the immune mechanism; N18.3 Chronic kidney disease, stage 3 (moderate); Z82.3 Family history of stroke

== ENCOUNTER → 2016-11-18 | Outpatient (CLI) | payer OTHER ==
[~2016-11-18] MED LIST changes: +ANTICRE6 PO; +CARB25TA12 PO; -CLOB-65 TOP; +LEVO25TA PO; +LVNIS120 SQ; -PRAM1TAB PO; +WARF-280 PO; +WARF4TAB44 PO
== END | disposition home or self-care (01) ==
LOC: C.PAPS 16:44
PROVIDERS: ATTEND Obstetrics & Gynecology
DX: Z12.4 Encounter for screening for malignant neoplasm of cervix (principal); Z11.51 Encounter for screening for human papillomavirus (HPV)

== ENCOUNTER → 2016-11-20 | Outpatient (CLI) | payer OTHER ==
--- NOTE | 2016-11-20 12:25 | MAMMOGRAPHY REPORT ---
BILATERAL DIGITAL SCREENING MAMMOGRAM WITH CAD: 11/20/2016 CLINICAL HISTORY: Routine screening. Patient has no complaints. TECHNIQUE: Current study was also evaluated with a Computer Aided Detection (CAD) system. Bilateral CC and MLO views were obtained. COMPARISON: Comparison is made to exams dated: 08/27/2015 mammogram, 08/24/2014 mammogram, 06/03/2011 m ammogram, 06/02/2010 mammogram, 05/16/2009 mammogram, and 05/14/2009 mammogram - [facility]. BREAST COMPOSITION: There are scattered areas of fibroglandular density in both breasts. FINDINGS: No suspicious masses, calcifications, or areas of architectural distortion are noted in ei ther breast. There has been no significant interval change compared to prior exams. IMPRESSION: ACR BI-RADS CATEGORY 1: NEGATIVE There is no mammographic evidence of malignancy. A 1 year screening mammogram is recommended. The pa tient will receive written notification of the results. Approximately 10% of breast cancers are not detected with mammography. A negative mammographic report should not delay biopsy if a clinically suggestive mass is present. Lily Hoover M.D. /:11/20/2016 12:09:26 Campaign Manager: Nessa CODY)(Violeta), [facility] letter sent: Normal 1/2 BI-RADS Code: ACR BI-RADS Category 1: Negative
== END | disposition home or self-care (01) ==
LOC: C.MAMM 11:00
PROVIDERS: ATTEND Internal Medicine
DX: Z12.31 Encounter for screening mammogram for malignant neoplasm of breast (principal)

== ENCOUNTER → 2017-12-23 | Outpatient (CLI) | payer OTHER ==
[~2017-12-23] MED LIST changes: -WARF4TAB44 PO
--- NOTE | 2017-12-24 15:26 | MAMMOGRAPHY REPORT ---
BILATERAL DIGITAL SCREENING MAMMOGRAM TOMOSYNTHESIS WITH CAD: 12/23/2017 CLINICAL HISTORY: Routine screening. Patient has no complaints. TECHNIQUE: The study was acquired using full field digital technology and interpreted from soft copy. Breast tomosynthesis in addition to standard 2D mammography was performed. Current study was also ev aluated with a Computer Aided Detection (CAD) system. COMPARISON: Comparison is made to exams dated: 11/20/2016 mammogram, 08/27/2015 mammogram, 08/24/2014 ma mmogram, 06/03/2011 mammogram, 06/02/2010 mammogram, and 05/16/2009 mammogram - [facility]. BREAST COMPOSITION: There are scattered areas of fibroglandular density in both breasts. FINDINGS: No suspicious masses, calcifications, or areas of architectural distortion are noted in either breast . There has been no significant interval change compared to prior exams. IMPRESSION: ACR BI-RADS CATEGORY 1: NEGATIVE There is no mammographic evidence of malignancy. A 1 year screening mammogram is recommended.( [id number]) The patient will receive written notification of the results. Some breast cancers are not detected with mammography. A negative mammographic report should not jayy y biopsy if a clinically suggestive mass is present. Lily Hoover M.D. ah/:12/23/2017 14:53:23 Whiting Machine Operator: RT Keshawn(Delia)(M), [facility] letter sent: Normal 1/2 BI-RADS Code: ACR BI-RADS Category 1: Negative
== END | disposition home or self-care (01) ==
LOC: C.MAMM 14:19
PROVIDERS: ATTEND Internal Medicine
DX: Z12.31 Encounter for screening mammogram for malignant neoplasm of breast (principal)